=== PATIENT | female | born 1995 | race Caucasian/White ===

== ENCOUNTER → 2022-11-09 17:58 | Outpatient (CLI) | payer BC, SELFPAY ==
[2022-11-09 19:31] LABS: Influenza A - CEPHEID Flu A NEGATIVE (NEGATIVE); Influenza B - CEPHEID Flu B NEGATIVE (NEGATIVE); Respiratory Syncytial Virus Negative (Negative)
[2022-11-09 19:44] LABS: COVID-19 CEPHEID 4-PLEX PCR Negative (Negative)
== END ==
PROVIDERS: Visit Provider Physician Assistant
DX: J02.9 Acute pharyngitis, unspecified (principal)
CPT/HCPCS: 0241U